=== PATIENT | male | born 1950 | race Two or more races ===

== ENCOUNTER 2024-08-13 20:30 | Inpatient (IN) | payer MEDICARE ==
--- NOTE | 2024-08-13 20:45 | ED ---
Neuro HPI - General Chief Complaint: Neuro Symptoms/Deficit Stated Complaint: Neuro symptoms Time Seen by Provider: 08/13/24 20:39 Source: patient, RN notes reviewed, old records reviewed Mode of arrival: wheelchair Limitations: no limitations - History of Present Illness Is the patient presenting with stroke symptoms?: Yes -: awoke with symptoms Initial Comments: This is a 73-year-old male to the ER for evaluation patient critical access hospital for evaluation of possible CVA. Patient awoke with symptoms today right-sided weakness right arm weakness difficulty with speech difficulty with thought process Location: speech, right face, dysarthria History of same: Yes Place: home Severity: moderate Improves With: none Worsens With: none Associated Symptoms: denies other symptoms Treatments Prior to Arrival: none - Related Data Home Medications: Home Medications Medication Instructions Recorded Confirmed Aspirin EC [Ecotrin Low Dose] 81 mg PO DAILY 08/14/24 08/14/24 Metoprolol Tartrate [Lopressor] 100 mg PO BID 08/14/24 08/14/24 lisinopriL [Zestril] 20 mg PO BID 08/14/24 08/14/24 Previous Rx's Medication Instructions Recorded Apixaban [Eliquis] 5 mg PO BID #60 tab 08/16/24 Atorvastatin [Lipitor] 80 mg PO HS #30 tab 08/16/24 amLODIPine [Norvasc] 10 mg PO DAILY #30 tab 08/16/24 Allergies/Adverse Reactions: Allergies Allergy/AdvReac Type Severity Reaction Status Date / Time No Known Allergies Allergy Verified 08/14/24 07:10 Review of Systems ROS Statement: Those systems with pertinent positive or pertinent negative responses have been documented in the HPI. ROS Other: All systems not noted in ROS Statement are negative. General Exam Limitations: no limitations General appearance: alert, in no apparent distress Head exam: Present: atraumatic, normocephalic, normal inspection Eye exam: Present: normal appearance, PERRL, EOMI. Absent: scleral icterus, conjunctival injection, periorbital swelling ENT exam: Present: normal exam, mucous membranes moist Neck exam: Present: normal inspection. Absent: tenderness, meningismus, lymph adenopathy Respiratory exam: Present: normal lung sounds bilaterally. Absent: respiratory distress, wheezes, rales, rhonchi, stridor Cardiovascular Exam: Present: regular rate, normal rhythm, normal heart sounds. Absent: systolic murmur, diastolic murmur, rubs, gallop, clicks GI/Abdominal exam: Present: soft, normal bowel sounds. Absent: distended, tenderness, guarding, rebound, rigid Extremities exam: Present: normal inspection, full ROM, normal capillary refill. Absent: tenderness, pedal edema, joint swelling, calf tenderness Back exam: Present: normal inspection Neurological exam: Present: alert, oriented X3, CN II-XII intact Psychiatric exam: Present: normal affect, normal mood Skin exam: Present: warm, dry, intact, normal color. Absent: rash Stroke MDM - Lab Data Result diagrams: 08/15/24 06:54 08/16/24 06:30 Lab Results 08/13/24 08/13/24 08/13/24 Range/Units 20:44 20:44 20:44 WBC 7.9 (3.8-10.6) k/uL RBC 4.70 (4.30-5.90) m/uL Hgb 14.4 (13.0-17.5) gm/dL Hct 44.0 (39.0-53.0) % MCV 93.7 (80.0-100.0) fL MCH 30.7 (25.0-35.0) pg MCHC 32.8 (31.0-37.0) g/dL RDW 13.6 (11.5-15.5) % Plt Count 160 (150-450) k/uL MPV 8.9 Neutrophils % 73 % Lymphocytes % 15 % Monocytes % 8 % Eosinophils % 2 % Basophils % 1 % Neutrophils # 5.8 (1.3-7.7) k/uL Lymphocytes # 1.2 (1.0-4.8) k/uL Monocytes # 0.6 (0-1.0) k/uL Eosinophils # 0.2 (0-0.7) k/uL Basophils # 0.0 (0-0.2) k/uL PT 12.0 (10.0-12.5) sec INR 1.1 (<1.2) APTT 27.2 (22.0-30.0) sec Sodium 140 (137-145) mmol/L Potassium 4.0 (3.5-5.1) mmol/L Chloride 110 H (98-107) mmol/L Carbon Dioxide 23 (22-30) mmol/L Anion Gap 7 mmol/L BUN 24 H (9-20) mg/dL Creatinine 1.10 (0.66-1.25) mg/dL Est GFR (CKD-EPI)AfAm 76 (>60 ml/min/1.73 sqM) Est GFR (CKD-EPI)NonAf 66 (>60 ml/min/1.73 sqM) Glucose 128 H (74-99) mg/dL POC Glucose (mg/dL) (70-110) mg/dL POC Glu [employer] ID Calcium 8.5 (8.4-10.2) mg/dL Total Bilirubin 0.8 (0.2-1.3) mg/dL AST 18 (17-59) U/L ALT 16 (4-49) U/L Alkaline Phosphatase 53 (38-126) U/L Creatine Kinase 55 (55-170) U/L Troponin I (0.000-0.034) ng/mL Total Protein 7.2 (6.3-8.2) g/dL Albumin 4.3 (3.5-5.0) g/dL 08/13/24 08/13/24 Range/Units 20:44 20:51 WBC (3.8-10.6) k/uL RBC (4.30-5.90) m/uL Hgb (13.0-17.5) gm/dL Hct (39.0-53.0) % MCV (80.0-100.0) fL MCH (25.0-35.0) pg MCHC (31.0-37.0) g/dL RDW (11.5-15.5) % Plt Count (150-450) k/uL MPV Neutrophils % % Lymphocytes % % Monocytes % % Eosinophils % % Basophils % % Neutrophils # (1.3-7.7) k/uL Lymphocytes # (1.0-4.8) k/uL Monocytes # (0-1.0) k/uL Eosinophils # (0-0.7) k/uL Basophils # (0-0.2) k/uL PT (10.0-12.5) sec INR (<1.2) APTT (22.0-30.0) sec Sodium (137-145) mmol/L Potassium (3.5-5.1) mmol/L Chloride (98-107) mmol/L Carbon Dioxide (22-30) mmol/L Anion Gap mmol/L BUN (9-20) mg/dL Creatinine (0.66-1.25) mg/dL Est GFR (CKD-EPI)AfAm (>60 ml/min/1.73 sqM) Est GFR (CKD-EPI)NonAf (>60 ml/min/1.73 sqM) Glucose (74-99) mg/dL POC Glucose (mg/dL) 168 H (70-110) mg/dL POC Glu [employer] ID Floyd White Calcium (8.4-10.2) mg/dL Total Bilirubin (0.2-1.3) mg/dL AST (17-59) U/L ALT (4-49) U/L Alkaline Phosphatase (38-126) U/L Creatine Kinase (55-170) U/L Troponin I <0.012 (0.000-0.034) ng/mL Total Protein (6.3-8.2) g/dL Albumin (3.5-5.0) g/dL - NIH Stroke Scale 1a. Level of Consciousness: (0) alert 1b. LOC Questions: (0) answers correctly 1c. LOC Commands: (0) performs tasks correctly 2. Best Gaze: (0) normal 3. Visual: (0) no visual loss 5a. Motor Arm Left: (0) no drift 5b. Motor Arm Right: (2) some gravity effort 6a. Motor Leg Left: (0) no drift 6b. Motor Leg Right: (0) no drift 7. Limb Ataxia: (0) absent 8. Sensory: (0) normal 9. Best Language: (1) mild/moderate aphasia 10. Dysarthria: (1) mild/moderate dysarthria 11. Extinction/Inattention: (0) no abnormality - Thrombolytic Inclusion/Exclusion Thrombolytic Exclusion Criteria: Symptom Onset > 4.5 Hours - Medical Decision Making 73 male with acute CVA symptoms elevated blood pressure patient will be admitted for hypertensive urgency and CVA - Radiology Data Radiology results: report reviewed (Chest x-ray CT brain CTA head neck negative for acute disease), image reviewed - EKG Data -: EKG Interpreted by Me (EKG A-fib rate 87 QRS 85 QTc 470) Past Medical History Past Alcohol Use History: Occasional Past Drug Use History: Marijuana Course Vital Signs 08/13/24 08/13/24 08/13/24 20:33 20:44 21:17 Temperature 97.4 F L Pulse Rate 86 98 86 Pulse Rate [ Pulse Oximetery ] Respiratory 16 18 20 Rate Blood Pressure 187/116 183/101 169/109 Blood Pressure [Right Arm] O2 Sat by Pulse 98 98 98 Oximetry 08/13/24 08/13/24 08/13/24 21:19 22:20 23:46 Temperature Pulse Rate 87 74 64 Pulse Rate [ Pulse Oximetery ] Respiratory 18 14 16 Rate Blood Pressure 169/109 164/95 182/122 Blood Pressure [Right Arm] O2 Sat by Pulse 98 99 Oximetry 08/14/24 08/14/24 08/14/24 01:17 03:06 07:49 Temperature 99.9 F H Pulse Rate 81 67 Pulse Rate [ 65 Pulse Oximetery ] Respiratory 18 18 18 Rate Blood Pressure 153/115 156/101 Blood Pressure 166/96 [Right Arm] O2 Sat by Pulse 98 98 96 Oximetry 08/14/24 08/14/24 08/14/24 07:50 11:41 11:46 Temperature 98.2 F 98.2 F Pulse Rate Pulse Rate [ 65 60 60 Pulse Oximetery ] Respiratory 18 18 60 H Rate Blood Pressure Blood Pressure 108/83 180/83 [Right Arm] O2 Sat by Pulse 98 98 Oximetry 08/14/24 08/14/24 08/14/24 12:50 15:44 19:35 Temperature 97.9 F Pulse Rate 76 Pulse Rate [ 60 85 Pulse Oximetery ] Respiratory 60 H 60 H 20 Rate Blood Pressure Blood Pressure 152/95 [Right Arm] O2 Sat by Pulse 98 96 Oximetry 08/14/24 19:37 Temperature Pulse Rate Pulse Rate [ Pulse Oximetery ] Respiratory Rate Blood Pressure 164/109 Blood Pressure [Right Arm] O2 Sat by Pulse Oximetry - Reevaluation(s) Reevaluation #1: 08/13/24 20:58 Medical records reviewed Reevaluation #2: 08/13/24 20:58 Patient symptoms unchanged Reevaluation #3: Patient informed of results questions answered Reevaluation #4: Was pt. sent in by a medical professional or institution (, PA, [facility], urgent care, hospital, or [facility]...) When possible be specific @ -no Did you speak to anyone other than the patient for history (EMS, parent, family, police, friend...)? What history was obtained from this source @ -no Did you review nursing and triage notes (agree or disagree)? Why? @ -agree Are old charts reviewed (outside hosp., previous admission, EMS record, old EKG, old radiological studies, urgent care reports/EKG's, [facility] records)? Report findings @ -yes Differential Diagnosis (chest pain, altered mental status, abdominal pain women, abdominal pain men, vaginal bleeding, weakness, fever, dyspnea, syncope, headache, dizziness, GI bleed, back pain, seizure, CVA, palpatations, mental health, musculoskeletal)? @ -prior EKG interpreted by me (3pts min.). @ -yes X-rays interpreted by me (1pt min.). @ -yes negative for acute disease CT interpreted by me (1pt min.). @ -Chest negative for acute disease U/S interpreted by me (1pt. min.). @ -no What testing was considered but not performed or refused? (CT, X-rays, U/S, labs)? Why? @ -none What meds were considered but not given or refused? Why? @ -none Did you discuss the management of the patient with other professionals (professionals i.e. , PA, [employer], lab, RT, psych nurse, social work professor, shoe lay out planner, teacher, accounting officer, case supervisor)? Give summary @ -no Was smoking cessation discussed for >3mins.? @ -no Was critical care preformed (if so, how long)? @ -no Were there social determinants of health that impacted care today? How? (Homelessness, low income, unemployed, alcoholism, drug addiction, tra nsportation, low edu. Level, literacy, decrease access to med. care, senior living, rehab)? @ -none Was there de-escalation of care discussed even if they declined (Discuss DNR or withdrawal of care, Hospice)? DNR status @ -no What co-morbidities impacted this encounter? (DM, HTN, Smoking, COPD, CAD, Cance r, CVA, ARF, Chemo, Hep., AIDS, mental health diagnosis, sleep apnea, morbid obesity)? @ -none Was patient admitted / discharged? Hospital course, mention meds given and route, prescriptions, significant lab abnormalities, going to OR and other pertinent info. @ - 73 male with acute CVA symptoms elevated blood pressure patient will be admitted for hypertensive urgency and CVA Admitted Undiagnosed new problem with uncertain prognosis? @ -no Drug Therapy requiring intensive monitoring for toxicity (Heparin, Nitro, Insulin, Cardizem)? @ -no Were any procedures done? @ -no Diagnosis/symptom? @ -CVA and hypertensive emergency Acute, or Chronic, or Acute on Chronic? @ -Acute Uncomplicated (without systemic symptoms) or Complicated (systemic symptoms)? @ -Complicated Side effects of treatment? @ -no Exacerbation, Progression, or Severe Exacerbation? @ -exacerbation Poses a threat to life or bodily function? How? (Chest pain, [place], [place], pneumonia, PE, COPD, DKA, ARF, appy, cholecystitis, CVA, Diverticulitis, Homicidal, Suicidal, threat to staff... and all critical care pts) @ -yes acute CVA Reevaluation #5: Differential CVA Ischemic stroke, hemorrhagic stroke, brain tumor, atypical migraine, Wernicke's encephalopathy, seizure, multiple sclerosis, meningitis, encephalitis, hypoglycemia, Guillain-Henderson, electrolytes disturbance, myasthenia gravis.... This is not meant to be an all-inclusive list - Consultations Consultation #1: Spoke with admitting physicians who agreed to admit this patient Disposition Clinical Impression: CVA (cerebral vascular accident) Disposition: ADMITTED IP TO THIS HOSP Condition: Fair Is patient prescribed a controlled substance at d/c from ED?: No Time of Disposition: 21:00
[2024-08-13 20:52] LABS: Glucose,Whole Blood 168 mg/dL (70-110)
--- NOTE | 2024-08-13 21:12 | CT ---
EXAMINATION TYPE: CODE STROKE: CT brain wo contr DATE OF EXAM: 08/13/2024 9:05 PM COMPARISON: None available.. CLINICAL INDICATION: Male, 73 years old with history of Neuro deficit, acute, stroke suspected, Right arm weakness since this morning. TECHNIQUE: Brain: Axial CT images of the brain were obtained with coronal and sagittal reformats created and rev iewed. Contrast used: None. Oral contrast used: None. CT DLP: 1233.2 mGycm, Automated exposure control for dose reduction was used. FINDINGS: Brain: No acute intracranial hemorrhage, midline shift or significant acute mass effect. No sagittal extra a xial fluid collection. Basal cisterns are patent. Ventricles and sulci mildly prominent with generali zed cerebral volume loss. There is asymmetric hypoattenuation in the left parietal lobe adjacent to t he posterior horn of the left lateral ventricle. Additional regions of scattered periventricular and some cortical white matter hypoattenuation likely reflect chronic microvascular ischemia. No large sc alp hematoma or depressed skull fracture. Paranasal sinuses and mastoid air cells appear patent. Prev ious bilateral cataract lens extraction. IMPRESSION: No acute intracranial hemorrhage, midline shift or significant acute mass effect. [facility], , 08/13/2024 9:10 PM
[2024-08-13] MEDS: ASPIRIN 325 MG TAB PO STA (21:37)
[2024-08-13] MEDS: SODIUM CHLORIDE 0.9% 1,000 ML IV SCH (21:38)
[2024-08-13] MEDS: SODIUM CHLORIDE 0.9% 1,000 ML IV STA (21:38)
--- NOTE | 2024-08-13 21:38 | CT ---
EXAMINATION TYPE: CT angio head neck DATE OF EXAM: 08/13/2024 9:19 PM COMPARISON: None available. CLINICAL INDICATION: Male, 73 years old with history of Neuro deficit, acute, stroke suspected; PHH, Right side weakness since this morning. TECHNIQUE: Axially acquired helical CT angiogram of the head and neck was obtained with contrast. Axi al images are supplemented with 3D reconstructions and MIP images which were post-processed at an in dependent workstation. NASCET criteria used. Contrast used:65 mL of Isovue 370 without and with IV Contrast, Oral contrast used: None. CT DLP: 674 mGycm, Automated exposure control for dose reduction was used. FINDINGS: CTA HEAD: No evidence of acute intracranial hemorrhage, mass effect, or midline shift. The ventricles, sulci, a nd cisterns are unremarkable. Vertebral arteries: The vertebral arteries are patent. Vertebral artery dominance: Codominant Basilar artery: The basilar artery is intact. The basilar artery bifurcation is normal. Internal Carotid arteries: The cervical, petrous, cavernous and supraclinoid segments are normal. NAYLA: Patent with no evidence of aneurysm. ACOM: Present without evidence of aneurysm. MCA: Patent with no evidence of aneurysm. CIGAR BINDER: Patent with no evidence of aneurysm. PCOM: Dominant left posterior communicating artery/ origin with absent left P1 segment. No right -sided posterior communicating artery. Dural sinuses: Patent. CTA NECK: Right Carotid System: The common carotid and external carotid arteries are patent. There is less than 50 % stenosis at the carotid bifurcation secondary to calcified/noncalcified plaque. No evidence of flow limiting stenosis . The rest of the internal carotid artery is patent. Left Carotid System: The common carotid and external carotid arteries are patent. There is less than 50 % stenosis at the carotid bifurcation secondary to calcified/noncalcified plaque. No evidence of flow-limiting stenosis . The rest of the internal carotid artery is patent. Moderate stenosis of the left vertebral artery origin due to calcified plaque which then reconstitute s prior to the V2 segment. Vertebral arteries are otherwise patent without evidence hemodynamically s ignificant stenosis. There is a three-vessel aortic arch. No evidence of hemodynamically significant stenosis. Upper thorax: IMPRESSION: 1. No evidence of dissection of the cervical internal carotid arteries or vertebral arteries. 2. No any evidence of significant stenosis at the carotid bifurcations. 3. No evidence of intracranial high-grade stenosis or intracranial aneurysm. If there is continued clinical concern for acute infarction, consider MRI brain, which is a more sensitive test. [facility], , 08/13/2024 9:36 PM
--- NOTE | 2024-08-13 22:03 | XR ---
EXAMINATION TYPE: XR chest 2V DATE OF EXAM: 08/13/2024 10:00 PM COMPARISON: None available. CLINICAL INDICATION: Male, 73 years old with history of altered mental status; [facility] TECHNIQUE: XR chest 2V Frontal and lateral views of the chest. FINDINGS: Cardiac silhouette within normal limits for size. Questionable patchy opacities at the right lung base which could reflect atelectasis or developing pn eumonia. No pleural effusion. No pneumothorax. No acute osseous abnormality. IMPRESSION: Questionable patchy opacities developing at the right lung base which could reflect atelectasis and/o r pneumonia. [facility], , 08/13/2024 10:01 PM
[2024-08-13 22:55] LABS: Basophils % (A) 1 %; Eosinophils # (A) 0.2 k/uL (0-0.7); Eosinophils % (A) 2 %; HGB 14.4 gm/dL (13.0-17.5); Lymphocytes # (A) 1.2 k/uL (1.0-4.8); Lymphocytes % (A) 15 %; MCH 30.7 pg (25.0-35.0); MCHC 32.8 g/dL (31.0-37.0); MCV 93.7 fL (80.0-100.0); Mean Platelet Volume 8.9; Monocytes # (A) 0.6 k/uL (0-1.0); Monocytes % (A) 8 %; Neutrophils # (A) 5.8 k/uL (1.3-7.7); Neutrophils % (A) 73 %; Platelet Count 160 k/uL (150-450); RDW 13.6 % (11.5-15.5); WBC 7.9 k/uL (3.8-10.6)
[2024-08-13 23:07] LABS: INR 1.1 (<1.2); Partial Thromboplastin Time 27.2 sec (22.0-30.0)
[2024-08-13 23:21] LABS: ALT 16 U/L (4-49); AST 18 U/L (17-59); African American GFR (CKD) 76 (>60 ml/min/1.73 sqM); Albumin 4.3 g/dL (3.5-5.0); Alkaline Phosphatase 53 U/L (38-126); Anion Gap 7 mmol/L; Blood Urea Nitrogen 24 mg/dL (9-20); Calcium 8.5 mg/dL (8.4-10.2); Carbon Dioxide 23 mmol/L (22-30); Chloride 110 mmol/L (98-107); Creatine Kinase 55 U/L (55-170); Glucose 128 mg/dL (74-99); Non-African American GFR(CKD) 66 (>60 ml/min/1.73 sqM); Sodium 140 mmol/L (137-145); Total Bilirubin 0.8 mg/dL (0.2-1.3); Total Protein 7.2 g/dL (6.3-8.2)
[2024-08-14] MEDS: ASPIRIN 325 MG TAB PO SCH (07:59)
[2024-08-14 08:44] LABS: Chol/HDL Ratio 4.27 Ratio; LDL Cholesterol,Calculated 110.8 mg/dL (0.0-131.0)
[2024-08-14] MEDS: lisinopriL 20 MG TAB PO SCH (13:08)
[2024-08-14] MEDS: METOPROLOL TARTRATE 50 MG TAB PO SCH (13:08)
--- NOTE | 2024-08-14 14:27 | P.HPIM ---
History of Present Illness H&P Date: 08/14/24 This is a very pleasant 73-year-old male who presented to the emergency department with right side weakness of his upper extremity along with garbled speech. Patient does follow with Dr. Hattie Tran with a past medical history of hypertension, hyperlipidemia. Patient reports he uses THC and occasionally drinks a few times a week. Patient did have a few beers last night and went to sleep around midnight and woke up approximately around 6 AM with the right sided weakness although did not recognize his speech disturbances and had no other deficits such as dizziness lightheadedness and went to the store and was having difficulty speaking and was noticed by the worker and came to the hospital for further evaluation. CT head was negative and CT angiogram showing no evidence of dissection of the cervical internal carotid arteries or vertebral arteries, no evidence of significant stenosis or carotid bifurcations and no evidence of intracranial high-grade stenosis or aneurysm. Patient was mildly hypertensive on admission and reports he has been compliant with his medications. Patient also reports he has been told previously of an arrhythmia although never been told of atrial fibrillation and reports does take an 81 mg aspirin daily. Patient was admitted for neurology evaluation. REVIEW OF SYSTEMS: CONSTITUTIONAL: No fever, no malaise, no fatigue. HEENT: No recent visual problems or hearing problems. Denied any sore throat. CARDIOVASCULAR: No chest pain, orthopnea, PND, no palpitations, no syncope. PULMONARY: No shortness of breath, no cough, no hemoptysis. GASTROINTESTINAL: No diarrhea, no nausea, no vomiting, no abdominal pain. NEUROLOGICAL: No headaches, no weakness, patient reported right side weakness with trouble expressing words and garbled speech that has since resolved HEMATOLOGICAL: Denies any bleeding or petechiae. GENITOURINARY: Denies any burning micturition, frequency, or urgency. MUSCULOSKELETAL/RHEUMATOLOGICAL: Denies any joint pain, swelling, or any muscle pain. ENDOCRINE: Denies any polyuria or polydipsia. The rest of the 14-point review of systems is negative. PHYSICAL EXAMINATION: GENERAL: The patient is alert and oriented x3, not in any acute distress. Well developed, elderly appearing, obese HEENT: Pupils are round and equally reacting to light. EOMI. No scleral icterus. No conjunctival pallor. Normocephalic, atraumatic. No pharyngeal erythema. No thyromegaly. CARDIOVASCULAR: S1 and S2 muffled PULMONARY: Chest is clear to auscultation, no wheezing or crackles. ABDOMEN: Soft, obese. Nontender, nondistended, normoactive bowel sounds. No palpable organomegaly. MUSCULOSKELETAL: No joint swelling or deformity. EXTREMITIES: No cyanosis, clubbing, or pedal edema. No deficits noted and gait is steady NEUROLOGICAL: Gross neurological examination did not reveal any focal deficits. SKIN: No rashes. Assessment: Right sided weakness with changes in speech, concern for TIA versus CVA History of hypertension Patient reports of known arrhythmia, although not sure if it was atrial fibrillation, 2D echo ordered and pending History of hyperlipidemia although does not take any medications he is fearful of taking statins due to significant side effects Alcohol use a few times weekly THC use a few times weekly Obesity with a BMI 36.2 GI prophylaxis DVT prophylaxis Full code Plan: Patient was admitted with right-sided weakness and garbled speech with concerns of TIA versus CVA with neurology consulted. CT was negative and CT angio showing no significant stenosis, MRI of the brain is ordered and pending 2D echo ordered and pending and recommend to continue with telemetry monitoring Home medications reviewed and resumed as appropriate Will follow-up on repeat labs and await hemoglobin A1c as blood sugars were mildly elevated although patient reports no history of diabetes. Currently awaiting MRI of the brain. Patient reports complete resolution of the symptoms and denies any further right sided weakness or difficulties in speaking. The impression and plan of care has been dictated by Madeleine Herrera, Nurse Practitioner as directed. Dr. Patsy MD I have performed a history and examination and MDM of this patient, discussed the same with the dictator, and agree with the dictator's assessment and plan as written ,documented as a scribe. Based on total visit time, I have performed more than 50% of the visit. Past Medical History Past Alcohol Use History: Occasional Past Drug Use History: Marijuana Medications and Allergies Home Medications Medication Instructions Recorded Confirmed Type Aspirin EC [Ecotrin Low Dose] 81 mg PO DAILY 08/14/24 08/14/24 History Metoprolol Tartrate [Lopressor] 100 mg PO BID 08/14/24 08/14/24 History Unknown Bp Med 1 tab PO HS 08/14/24 08/14/24 History lisinopriL [Zestril] 20 mg PO BID 08/14/24 08/14/24 History Allergies Allergy/AdvReac Type Severity Reaction Status Date / Time No Known Allergies Allergy Verified 08/14/24 07:10 Physical Exam Vitals: Vital Signs Temp Pulse Pulse Resp BP BP Pulse Ox 08/14/24 07:50 65 18 08/14/24 07:49 99.9 F H 65 18 166/96 96 08/14/24 03:06 67 18 156/101 98 08/14/24 01:17 81 18 153/115 98 08/13/24 23:46 64 16 182/122 08/13/24 22:20 74 14 164/95 99 08/13/24 21:19 87 18 169/109 98 08/13/24 21:17 86 20 169/109 98 08/13/24 20:44 98 18 183/101 98 08/13/24 20:33 97.4 F L 86 16 187/116 98 Intake and Output 08/13/24 08/14/24 08/14/24 22:59 06:59 14:59 Other: Voiding Method Toilet Weight 111.13 kg Results CBC & Chem 7: 08/13/24 20:44 08/13/24 20:44 Labs: Abnormal Lab Results - Last 24 Hours (Table) 08/13/24 08/13/24 Range/Units 20:44 20:51 Chloride 110 H (98-107) mmol/L BUN 24 H (9-20) mg/dL Glucose 128 H (74-99) mg/dL POC Glucose (mg/dL) 168 H (70-110) mg/dL Thrombosis Risk Factor Assmnt - DVT/VTE Prophylaxis DVT/VTE Prophylaxis: Pharmacologic Prophylaxis ordered Assessment and Plan Time with Patient: Greater than 30
[2024-08-14] MEDS: HEPARIN SODIUM,PORCINE 5,000 UNIT/ML 1 ML VIAL SQ SCH (15:46)
[2024-08-14] MEDS: CLOPIDOGREL 75 MG TAB PO SCH (15:46)
--- NOTE | 2024-08-14 18:40 | P.CNNES ---
History of Present Illness Consult date: 08/14/24 Requesting physician: Claudio Anand Reason for Consult: cva History of Present Illness: This is a 73-year-old gentleman who present emergency department because of right arm weakness, speech difficulty and slurring of the speech. Stated that his symptoms began upon waking up yesterday at 6 to 7 AM and last normal was at midnight night before. He stated he initially noticed his right arm was weak but did not think much of it and it was mild then later in the day when he was trying to speak to somebody felt he could not get his words out and it was not coming out right as well as slurring his speech. His weakness got all a bit more worse on the right arm. He denies any history of stroke. He does have u nderlying history of high blood pressure and his blood pressure runs in the 130s 140s systolic at baseline and sometimes goes higher. He is on aspirin 81 mg daily. According to the patient he states that he has underlying history of that his heart skips a beat and he follows up with the primary care once a year and does not know if he has underlying history of atrial fibrillation or flutter. Some of the workup during this hospital visit consisted of: CBC with differential is unremarkable Lipid panel is triglyceride is 139, cholesterol is 181, HDL is 42 and LDL is 110. CT of the head is reported as no acute intracranial hemorrhage, midline shift or significant acute mass effect. Reviewed the CT and I agree with the report CT angiography of the head and neck is reported as no evidence of dissection of cervical internal carotid artery or vertebral artery. No evidence of significant stenosis at the carotid bifurcation. No evidence of intracranial high-grade stenosis or intracranial aneurysm. EKG is reported as atrial fibrillation with aberrant conduction or ventricular premature complexes. Review of Systems As per HPI. Past Medical History Past Medical History: Hypertension History of Any Multi-Drug Resistant Organisms: None Reported Past Anesthesia/Blood Transfusion Reactions: No Reported Reaction Past Alcohol Use History: Occasional Past Drug Use History: Marijuana Medications and Allergies Home Medications Medication Instructions Recorded Confirmed Type Aspirin EC [Ecotrin Low Dose] 81 mg PO DAILY 08/14/24 08/14/24 History Metoprolol Tartrate [Lopressor] 100 mg PO BID 08/14/24 08/14/24 History Unknown Bp Med 1 tab PO HS 08/14/24 08/14/24 History lisinopriL [Zestril] 20 mg PO BID 08/14/24 08/14/24 History Allergies Allergy/AdvReac Type Severity Reaction Status Date / Time No Known Allergies Allergy Verified 08/14/24 07:10 Physical Examination - Vital Signs Vital Signs: Vital Signs Temp Pulse Pulse Resp BP BP Pulse Ox 08/14/24 15:44 97.9 F 85 60 H 152/95 98 08/14/24 12:50 60 60 H 08/14/24 11:46 98.2 F 60 60 H 180/83 98 08/14/24 11:41 98.2 F 60 18 108/83 98 08/14/24 07:50 65 18 08/14/24 07:49 99.9 F H 65 18 166/96 96 08/14/24 03:06 67 18 156/101 98 08/14/24 01:17 81 18 153/115 98 08/13/24 23:46 64 16 182/122 08/13/24 22:20 74 14 164/95 99 08/13/24 21:19 87 18 169/109 98 08/13/24 21:17 86 20 169/109 98 08/13/24 20:44 98 18 183/101 98 08/13/24 20:33 97.4 F L 86 16 187/116 98 Intake and Output 08/14/24 08/14/24 08/14/24 06:59 14:59 22:59 Intake Total 118 500 Balance 118 500 Intake: Oral 118 500 Other: Voiding Method Toilet # Voids 1 2 Weight 111.13 kg GENERAL: The patient is lying in bed and is not in acute distress. NEUROLOGICAL: Higher mental function: The patient is awake, alert, oriented to self, place and time. Patient is following commands. Has mild expressive aphasia. Cranial nerves: The pupils are round, equal and reactive to light and accommodation. Visual beckwith are full to confrontation throughout. Extraocular movement is intact no nystagmus is noted. Facial sensation is normal to touch throughout. The facial strength is normal throughout. Hearing is moderately decreased bilaterally to hand rub. Tongue is midline and moved [id number] without any difficulty. Mild dysarthria is noted. Shoulder shrug is normal bilaterally. Motor: The strength is 5 over 5 throughout. Normal tone and bulk. Cerebellum: Normal finger to nose heel to chin bilaterally. Sensation: Sensation is normal to touch throughout. Reflexes (right/left): 2+ throughout. Plantars are downgoing bilaterally. Results - Laboratory Findings CBC and BMP: 08/13/24 20:44 08/13/24 20:44 Abnormal Lab Findings: Abnormal Labs 08/13/24 08/13/24 20:44 20:51 Chloride 110 H BUN 24 H Glucose 128 H POC Glucose (mg/dL) 168 H Assessment and Plan Assessment: This is a 73-year-old gentleman who present emergency department because of expressive aphasia dysarthria and right arm weakness and he woke up with the symptoms yesterday a.m. and the last normal was at midnight. Likely Acute ischemic stroke. No IV thrombolytic since outside window and risk outweigh benefit. Hypertensive urgency Atrial fibrillation on EKG and patient states that in the past he has skipped beat unsure if he has underlying history of atrial fibrillation that the patient is not aware of Underlying history of hypertension and seems uncontrolled Plan: Patient is resumed on his home dose of aspirin 81 mg. I started the patient on Plavix 75 mg daily. Recommend cardiology consultation for the A-fib Patient is on Lipitor 80 mg nightly for sites of stroke prophylaxis. I ordered MRI of the brain. 2D echo and hemoglobin A1c is ordered and is pending Continue neurochecks Cardiac monitoring PT OT and UTILITY TRACTOR OPERATOR are consulted Patient was counseled on taking his blood pressure at home as well as making sure blood pressure is controlled Will defer the rest of the medical management to primary and other specialist DVT prophylaxis I started the patient on subcu heparin 5000 units every 12 hours. The plan discussed with the patient and his nurse Thank for the consultation. Time with Patient: Greater than 30
[2024-08-14] MEDS: ATORVASTATIN 80 MG TAB PO SCH (19:39)
[2024-08-15 07:30] LABS: Basophils % (A) 0 %; Eosinophils # (A) 0.1 k/uL (0-0.7); Eosinophils % (A) 2 %; HCT 46.3 % (39.0-53.0); HGB 15.1 gm/dL (13.0-17.5); Lymphocytes # (A) 1.3 k/uL (1.0-4.8); Lymphocytes % (A) 20 %; MCHC 32.7 g/dL (31.0-37.0); MCV 94.8 fL (80.0-100.0); Mean Platelet Volume 8.5; Monocytes # (A) 0.5 k/uL (0-1.0); Monocytes % (A) 7 %; Neutrophils # (A) 4.5 k/uL (1.3-7.7); Neutrophils % (A) 67 %; Platelet Count 166 k/uL (150-450); RBC 4.88 m/uL (4.30-5.90); RDW 13.6 % (11.5-15.5); WBC 6.7 k/uL (3.8-10.6)
[2024-08-15] MEDS: ASPIRIN 81 MG PO SCH (07:44)
[2024-08-15 08:11] LABS: African American GFR (CKD) 73 (>60 ml/min/1.73 sqM); Anion Gap 5 mmol/L; Blood Urea Nitrogen 15 mg/dL (9-20); Calcium 8.7 mg/dL (8.4-10.2); Carbon Dioxide 27 mmol/L (22-30); Chloride 106 mmol/L (98-107); Glucose 88 mg/dL (74-99); Non-African American GFR(CKD) 63 (>60 ml/min/1.73 sqM); Potassium 3.9 mmol/L (3.5-5.1); Sodium 138 mmol/L (137-145)
[2024-08-15] MEDS: amLODIPine 10 MG TAB PO SCH (15:16)
--- NOTE | 2024-08-15 17:20 | P.PN ---
Subjective Progress Note Date: 08/15/24 I am following up with the patient and patient states that his speech is improving but not back to baseline. He denies of any new neurological issues. He is pending to have MRI of the brain. Objective - Vital Signs Vital signs: Vital Signs Temp 98.3 F 08/15/24 15:15 Pulse 68 08/15/24 15:15 Resp 17 08/15/24 15:15 BP 168/94 08/15/24 15:15 Pulse Ox 98 08/15/24 15:15 FiO2 Intake & Output 08/14/24 08/15/24 08/15/24 18:59 06:59 18:59 Intake Total 618 Balance 618 Weight 111.13 kg 111.3 kg Intake: Oral 618 Other: Voiding Method Toilet Toilet Toilet # Voids 2 3 # Bowel Movements 1 - Exam GENERAL: The patient is sitting in a recliner chair and is not in acute distress. NEUROLOGICAL: Higher mental function: The patient is awake, alert, oriented to self, place and time. Patient is following commands. Has subtle expressive aphasia. Cranial nerves: The pupils are round, equal and reactive to light and accommodation. Visual beckwith are full to confrontation throughout. Extraocular movement is intact no nystagmus is noted. Facial sensation is normal to touch throughout. The facial strength is normal throughout. Hearing is moderately decreased bilaterally to hand rub. Tongue is midline and moved [id number] wi thout any difficulty. Mild dysarthria is noted. Shoulder shrug is normal bilaterally. Motor: The strength is 5 over 5 throughout. Normal tone and bulk. Cerebellum: Normal finger to nose heel to chin bilaterally. Sensation: Sensation is normal to touch throughout. Reflexes (right/left): 2+ throughout. Plantars are downgoing bilaterally. Some of the workup during this hospital visit consisted of: CBC with differential is unremarkable Lipid panel is triglyceride is 139, cholesterol is 181, HDL is 42 and LDL is 110. TSH: 1.730 HbA1c: 6.0 CT of the head is reported as no acute intracranial hemorrhage, midline shift or significant acute mass effect. Reviewed the CT and I agree with the report CT angiography of the head and neck is reported as no evidence of dissection of cervical internal carotid artery or vertebral artery. No evidence of significant stenosis at the carotid bifurcation. No evidence of intracranial high-grade stenosis or intracranial aneurysm. EKG is reported as atrial fibrillation with aberrant conduction or ventricular premature complexes. - Labs CBC & Chem 7: 08/15/24 06:54 08/15/24 06:54 Assessment and Plan Assessment: This is a 73-year-old gentleman who present emergency department because of expressive aphasia dysarthria and right arm weakness and he woke up with the [employer] yesterday a.m. and the last normal was at midnight. Likely Acute ischemic stroke. No IV thrombolytic since outside window and risk outweigh benefit. Hypertensive urgency Atrial fibrillation on EKG and patient states that in the past he has skipped beat unsure if he has underlying history of atrial fibrillation that the patient is not aware of Underlying history of hypertension and seems uncontrolled Plan: Patient is resumed on his home dose of aspirin 81 mg. I started the patient on Plavix 75 mg daily. For A-fib recommend cardiology consultation. If the patient is started on anticoagulation down the line, patient does not need to be on dual antiplatel et. Patient is on Lipitor 80 mg nightly for sites of stroke prophylaxis. Pending MRI of the brain, 2D echo. Continue neurochecks Cardiac monitoring PT OT and CLINICAL NURSE REVIEWER are consulted Patient was counseled on taking his blood pressure at home as well as making sure blood pressure is controlled Will defer the rest of the medical management to primary and other specialist DVT prophylaxis On subcu heparin 5000 units every 12 hours. Time with Patient: Less than 30
--- NOTE | 2024-08-15 17:54 | MR ---
INDICATION: Patient age:Male; 73 years old; Reason for study: cva. right arm weakness and speech difficulty; PHH. COMPARISON: CT brain 08/13/2024, CTA head and neck 08/13/2024. TECHNIQUE: Multi planar, multi sequence imaging was performed through the brain without the administr ation of intravenous contrast. FINDINGS: The herbert-white junctions, ventricular system, basal cisterns appear unremarkable. Mild diffuse cerebr al atrophy. Several foci of restricted diffusion identified within the left frontal parietal temporal watershed region (series 303, image 200). Additional separation within the left temporal lobe within the middle cranial fossa anteriorly (series 3, image 104). There is corresponding T2/FLAIR hyperinte nse signal. Intracranial arterial flow voids are maintained. Midline structures show no abnormality. Patchy and confluent areas of high T2/FLAIR signal intensity are seen within the periventricular whit e matter. The susceptibility weighted images do not reveal any evidence for micro-hemorrhage. The bone marrow signal is within normal limits. Bilateral aphakia. Mucous retention cyst within the b ilateral maxillary sinuses with largest within the left measuring up to 1.3 cm. Trace effusion within the right mastoid air cells. IMPRESSION: 1. Acute/subacute ischemia primarily within the left frontal/parietal/temporal watershed region with additional focus within the anterior left temporal lobe within the middle cranial fossa. 2. Nonspecific white matter changes, likely related to small vessel ischemic disease. [facility], , 08/15/2024 5:52 PM
[2024-08-15] MEDS: APIXABAN 5 MG TAB PO SCH (20:21)
[2024-08-16] MEDS: PANTOPRAZOLE 40 MG TABLET PO SCH (05:48)
--- NOTE | 2024-08-16 06:14 | P.PN ---
Subjective Progress Note Date: 08/15/24 This is a very pleasant 73-year-old male who presented to the emergency department with right side weakness of his upper extremity along with garbled speech. Patient does follow with Dr. Hattie Tran with a past medical history of hypertension, hyperlipidemia. Patient reports he uses THC and occasionally drinks a few times a week. Patient did have a few beers last night and went to sleep around midnight and woke up approximately around 6 AM with the right sided weakness although did not recognize his speech disturbances and had no other deficits such as dizziness lightheadedness and went to the store and was having difficulty speaking and was noticed by the worker and came to the hospital for further evaluation. CT head was negative and CT angiogram showing no evidence of dissection of the cervical internal carotid arteries or vertebral arteries, no evidence of significant stenosis or carotid bifurcations and no evidence of intracranial high-grade stenosis or aneurysm. Patient was mildly hypertensive on admission and reports he has been compliant with his medications. Patient also reports he has been told previously of an arrhythmia although never been told of atrial fibrillation and reports does take an 81 mg aspirin daily. Patient was admitted for neurology evaluation. 08/15/2024 Patient is seen in follow-up today awaiting MRI of the brain which should occur sometime today although they are quite behind and report they are still working on MRIs from August 10. Patient denies any further symptoms of right sided weakness or difficulty in speaking. Blood pressures are mildly elevated and home medications resumed will add Norvasc as patient takes this as well. Diallo t is afebrile with no reported chest pain or shortness of breath. Review of systems: Constitutional: No reports of fatigue, fever, or chills Cardiovascular: No reports of chest pain or palpitations Respiratory: No reports of shortness of breath or cough GI: No reports of nausea, vomiting, or diarrhea : No reports of dysuria or retention Neurovascular: No reports of weakness or numbness All medications have been reviewed The rest of the 14-point review of systems is negative. PHYSICAL EXAMINATION: GENERAL: The patient is alert and oriented x3, not in any acute distress. Well developed, elderly appearing, obese HEENT: Pupils are round and equally reacting to light. EOMI. No scleral icterus. No conjunctival pallor. Normocephalic, atraumatic. No pharyngeal erythema. No thyromegaly. CARDIOVASCULAR: S1 and S2 muffled PULMONARY: Chest is clear to auscultation, no wheezing or crackles. ABDOMEN: Soft, obese. Nontender, nondistended, normoactive bowel sounds. No palpable organomegaly. MUSCULOSKELETAL: No joint swelling or deformity. EXTREMITIES: No cyanosis, clubbing, or pedal edema. No deficits noted and gait is steady, strength in bilateral upper and lower extremities 5/5 NEUROLOGICAL: Gross neurological examination did not reveal any focal deficits. SKIN: No rashes. Assessment: Right sided weakness with changes in speech, concern for TIA versus CVA, likely CVA History of hypertension Patient reports of known arrhythmia, although not sure if it was atrial fibrillation, 2D echo ordered and pending. EKG reports atrial fibrillation/flutter, cardiology consulted History of hyperlipidemia although does not take any medications he is fearful of taking statins due to significant side effects Alcohol use a few times weekly THC use a few times weekly Obesity with a BMI 36.2 GI prophylaxis DVT prophylaxis Full code Plan: Patient was admitted with right-sided weakness and garbled speech with concerns of TIA versus CVA with neurology following. CT was negative and CT angio showing no significant stenosis, MRI of the brain is ordered and pending for sometime today. MRI department is extremely behind and working on MRIs that were ordered from August 10. 2D echo ordered and pending and recommend to continue with telemetry monitoring. Will consult cardiology and appreciate input and recommendations. Patient reports was never officially diagnosed with an arrhythmia and has not been on any blood thinners and reports to taking a baby aspirin daily. Most likely A- fib/flutter and will start Eliquis Home medications reviewed and resumed as appropriate Will follow-up on repeat labs and await hemoglobin A1c as blood sugars were mildly elevated although patient reports no history of diabetes. Currently awaiting MRI of the brain. Patient reports complete resolution of the symptoms and denies any further right sided weakness or difficulties in speaking. Will discuss with neurology once MRI is resulted regarding discharge planning. The impression and plan of care has been dictated by Madeleine Herrera, Nurse Practitioner as directed. Dr. Patsy MD I have performed a history and examination and MDM of this patient, discussed the same with the dictator, and agree with the dictator's assessment and plan as written ,documented as a scribe. Based on total visit time, I have performed more than 50% of the visit. Objective - Vital Signs Vital signs: Vital Signs Temp 98.2 F 08/15/24 11:02 Pulse 66 08/15/24 13:13 Resp 17 08/15/24 13:13 BP 163/86 08/15/24 11:02 Pulse Ox 98 08/15/24 11:02 FiO2 Intake & Output 08/14/24 08/15/24 08/15/24 18:59 06:59 18:59 Intake Total 618 Balance 618 Weight 111.13 kg 111.3 kg Intake: Oral 618 Other: Voiding Method Toilet Toilet Toilet # Voids 2 1 - Labs CBC & Chem 7: 08/15/24 06:54 08/15/24 06:54
--- NOTE | 2024-08-16 07:58 | CA ---
Transthoracic Echo Report Name: Aniceto Gaming Age: 73 Gender: M : 1950 Exam Date: 08/15/2024 09:48 Exam Location: [facility] Ht (in): 69 Wt (lb): 245 Ordering Physician: Claudio Anand DO Attending/Referring Phys: [id number], Cheng Retail Operations Manager Mariluz Schuler RDCS Procedure CPT: Indications: Thrombus Cardiac Hx: Technical Quality: Fair Contrast 1: Total Dose (mL): Contrast 2: Total Dose (mL): MEASUREMENTS (Male / Female) Normal Values 2D ECHO LV Diastolic Diameter PLAX 4.3 cm 4.2 - 5.9 / 3.9 - 5.3 cm LV Systolic Diameter PLAX 2.6 cm IVS Diastolic Thickness 1.4 cm 0.6 - 1.0 / 0.6 - 0.9 cm LVPW Diastolic Thickness 1.5 cm 0.6 - 1.0 / 0.6 - 0.9 cm LV Relative Wall Thickness 0.7 RV Internal Dim ED PLAX 2.0 cm LVOT Diameter 2.1 cm LA Systolic Diameter LX 5.4 cm 3.0 - 4.0 / 2.7 - 3.8 cm LV Diastolic Volume MOD BP 50.9 cm??? 67 - 155 / 56 - 104 cm??? LV Systolic Volume MOD BP 32.3 cm??? - / 19 - 49 cm??? LV Ejection Fraction MOD BP 36.7 % >= 55 % LV Cardiac Index MOD BP 528.3 cm???/min???m??? LV Diastolic Volume MOD 4C 62.3 cm??? LV Systolic Volume MOD 4C 39.2 cm??? LV Ejection Fraction MOD 4C 37.0 % LV Cardiac Index MOD 4C 651.8 cm???/min???m??? LV Diastolic Length 4C 7.2 cm LV Systolic Length 4C 6.5 cm LV Diastolic Volume MOD 2C 38.8 cm??? LV Systolic Volume MOD 2C 23.5 cm??? LV Ejection Fraction MOD 2C 39.6 % LV Cardiac Index MOD 2C 434.0 cm???/min???m??? LV Diastolic Length 2C 6.7 cm LV Systolic Length 2C 6.2 cm LA Volume 164.0 cm??? 18 - 58 / 22 - 52 cm??? LA Volume Index 69.2 cm???/m??? 16 - 28 cm???/m??? M-MODE Aortic Root Diameter MM 3.6 cm LA Systolic Diameter MM 5.4 cm LA Ao Ratio MM 1.5 AV Cusp Separation MM 1.8 cm DOPPLER AI Peak Velocity 192.3 cm/s AI Peak Gradient 14.8 mmHg AI Pressure Half Time 704.6 ms TR Peak Velocity 301.3 cm/s TR Peak Gradient 36.3 mmHg Right Atrial Pressure 15.0 mmHg Pulmonary Artery Systolic Pressu 51.3 mmHg Right Ventricular Systolic Press 51.3 mmHg FINDINGS Left Ventricle Left ventricular ejection fraction is estimated at 55-60 %. Moderately increased septal wall thickness. No obvious regional wall motion abnormalities. Left ventricular cavity size normal. Right Ventricle Normal right ventricular size and function. Moderate pulmonary hypertension. Right Atrium Severe right atrial dilatation. Left Atrium Severely increased left atrial diameter. Severely increased left atrial volume. Moderately increased left atrial area. Mitral Valve Structurally normal mitral valve. Mild mitral regurgitation. No mitral stenosis. Aortic Valve Trileaflet aortic valve. No aortic stenosis. Mild aortic regurgitation. Tricuspid Valve Structurally normal tricuspid valve. Mild tricuspid regurgitation. No tricuspid stenosis. Pulmonic Valve Structurally normal pulmonic valve. Trace pulmonic regurgitation. No pulmonic stenosis. Pericardium No pericardial or pleural effusion. Aorta Normal size aortic root and proximal ascending aorta. CONCLUSIONS Normal LV size and preserved systolic function with mild concentric LVH. Severely enlarged atria. Mild mitral, moderate tricuspid and mild aortic insufficiency. No pericardial effusion. Moderate pulmonary hypertension Previewed by: Dr. Jocy Smith MD (Electronically Signed) Final Date: 16 August 2024 07:57
[2024-08-16 08:07] LABS: African American GFR (CKD) 66 (>60 ml/min/1.73 sqM); Anion Gap 8 mmol/L; Blood Urea Nitrogen 20 mg/dL (9-20); Calcium 8.9 mg/dL (8.4-10.2); Carbon Dioxide 27 mmol/L (22-30); Chloride 104 mmol/L (98-107); Glucose 82 mg/dL (74-99); Non-African American GFR(CKD) 57 (>60 ml/min/1.73 sqM); Potassium 3.6 mmol/L (3.5-5.1); Sodium 139 mmol/L (137-145)
[2024-08-16 10:07] VITALS: TEMP 98.8
--- NOTE | 2024-08-16 11:48 | P.CRDCN ---
History of Present Illness History of present illness: HISTORY OF PRESENT ILLNESS: This is a 73-year-old male with a past medical history significant for hypertension and obesity. Patient does not follow with a environmental marketing representative. We have been asked to see the patient in consultation for CVA, uncontrolled hypertension, and atrial fibrillation. Patient examined at the bedside. Patient presented to the hospital as he could not move his right arm. Patient denied having any chest pain or pressure. Denied having any shortness of breath. Patient was found to have acute/subacute CVA on MRI. Patient was also found to be in atrial fibrillation. The patient denies any known history of atrial fibrillation. He has been started on Eliquis. He remains in atrial fibrillation with controlled ventricular rate. DIAGNOSTICS: - EKG reveals A-fib with controlled ventricular - Chest xray questionable patchy opacities developing in the right lung base which could reflect atelectasis and/or pneumonia -MRI of the brain: Acute/subacute ischemia primarily in the left frontal parietal temporal watershed region with additional focus within the anterior left temporal lobe within the middle cranial fossa. - Laboratory data: WBC 6.7. Hemoglobin 15.1. Platelet count 166. Sodium 138. Potassium 3.9. BUN 15. Creatinine 1.15. Troponin negative x 1. - Current home cardiac medications include lisinopril 20 mg twice a day, aspirin 81 mg daily, and metoprolol tartrate 100 mg twice a day - Echocardiogram obtained this admission reveals ejection fraction 55 to 60%, moderate pulmonary hypertension, mild mitral regurgitation, mild aortic regurgitation, mild tricuspid regurgitation REVIEW OF SYSTEMS: At the time of my exam: CONSTITUTIONAL: Denies fever or chills. HEENT: Denies blurred vision, vision changes, or eye pain. Denies hemoptysis CARDIOVASCULAR: Denies chest pain. Denies orthopnea. Denies PND. Denies palpitations RESPIRATORY: Denies shortness of breath. GASTROINTESTINAL: Denies abdominal pain. Denies nausea or vomiting. HEMATOLOGIC: Denies bleeding disorders. GENITOURINARY: Denies any blood in urine. SKIN: Denies pruitis. Denies rash. PHYSICAL EXAM: VITAL SIGNS: Reviewed. GENERAL: Well-developed in no acute distress. HEENT: Head is normocephalic. Pupils are equal, round. Sclerae anicteric. Mucous membranes of the mouth are moist. Neck supple. No JVD or thyromegaly LUNGS: Respirations even and unlabored. Lungs essentially clear to auscultation bilaterally. HEART: Irregular rate and rhythm. S1 and S2 heard. ABDOMEN: Soft. Nondistended. Nontender. EXTREMITIES: Normal range of motion. No clubbing or cyanosis. Peripheral pulses intact. No lower extremity edema NEUROLOGIC: Awake and alert. Oriented x 3. ASSESSMENT: Acute/subacute CVA New onset atrial fibrillation with controlled ventricular rate Moderate pulm hypertension Hypertension uncontrolled on admission Obesity: BMI 36.4 PLAN: 2D echo obtained and reviewed TSH checked and within normal limits Patient has been started on Eliquis 5 mg twice a day Continue current cardiac medications Continue telemetry monitoring Patient instructed to purchase a blood pressure cuff on an outpatient basis and keep a log of his blood pressures Further recommendations pending patient course Nurse practitioner note has been reviewed by physician. Signing provider agrees with the documented findings, assessment, and plan of care documented by GARMENT INSPECTOR as a scribe. Past Medical History Past Medical History: Hypertension History of Any Multi-Drug Resistant Organisms: None Reported Past Anesthesia/Blood Transfusion Reactions: No Reported Reaction Past Alcohol Use History: Occasional Past Drug Use History: Marijuana Medications and Allergies Home Medications Medication Instructions Recorded Confirmed Type Aspirin EC [Ecotrin Low Dose] 81 mg PO DAILY 08/14/24 08/14/24 History Metoprolol Tartrate [Lopressor] 100 mg PO BID 08/14/24 08/14/24 History Unknown Bp Med 1 tab PO HS 08/14/24 08/14/24 History lisinopriL [Zestril] 20 mg PO BID 08/14/24 08/14/24 History Allergies Allergy/AdvReac Type Severity Reaction Status Date / Time No Known Allergies Allergy Verified 08/14/24 07:10 Physical Exam Vitals: Vital Signs Temp Pulse Resp BP Pulse Ox 08/16/24 04:00 97.9 F 70 16 138/86 95 08/16/24 00:00 69 17 159/91 96 08/15/24 20:00 98.2 F 74 19 157/89 99 08/15/24 15:15 98.3 F 68 17 168/94 98 08/15/24 13:13 66 17 08/15/24 11:02 98.2 F 66 17 163/86 98 08/15/24 09:19 98.1 F 71 17 176/74 99 08/15/24 07:38 71 17 08/15/24 07:37 97.6 F 71 17 203/113 98 Intake and Output 08/15/24 08/16/24 08/16/24 22:59 06:59 14:59 Other: Voiding Method Toilet Toilet # Voids 3 1 # Bowel Movements 1 Weight 111.9 kg Results 08/15/24 06:54 08/16/24 06:30 CBC 08/15/24 Range/Units 06:54 WBC 6.7 (3.8-10.6) k/uL RBC 4.88 (4.30-5.90) m/uL Hgb 15.1 (13.0-17.5) gm/dL Hct 46.3 (39.0-53.0) % Plt Count 166 (150-450) k/uL Comprehensive Metabolic Panel 08/15/24 Range/Units 06:54 Sodium 138 (137-145) mmol/L Potassium 3.9 (3.5-5.1) mmol/L Chloride 106 (98-107) mmol/L Carbon Dioxide 27 (22-30) mmol/L BUN 15 (9-20) mg/dL Creatinine 1.15 (0.66-1.25) mg/dL Glucose 88 (74-99) mg/dL Calcium 8.7 (8.4-10.2) mg/dL Current Medications Generic Name Dose Route Start Last Admin Trade Name Freq PRN Reason Stop Dose Admin Amlodipine Besylate 10 mg 08/15/24 14:15 08/15/24 15:16 Amlodipine 10 Mg Tab PO 10 mg DAILY GLORIA Administration Apixaban 5 mg 08/15/24 21:00 08/15/24 20:21 Apixaban 5 Mg Tab PO 5 mg BID GLORIA Administration Protocol Aspirin 81 mg 08/15/24 09:00 08/15/24 07:44 Aspirin 81 Mg PO 81 mg DAILY GLORIA Administration Atorvastatin Calcium 80 mg 08/14/24 21:00 08/15/24 20:39 Atorvastatin 80 Mg Tab PO 80 mg HS GLORIA Administration Lisinopril 20 mg 08/14/24 13:00 08/15/24 20:21 Lisinopril 20 Mg Tab PO 20 mg BID GLORIA Administration Metoprolol Tartrate 100 mg 08/14/24 13:00 08/15/24 20:21 Metoprolol Tartrate 50 Mg Tab PO 100 mg BID GLORIA Administration Pantoprazole Sodium 40 mg 08/16/24 07:30 08/16/24 05:48 Pantoprazole 40 Mg Tablet PO 40 mg [id number] GLORIA Administration Intake and Output 08/15/24 08/16/24 08/16/24 22:59 06:59 14:59 Other: Voiding Method Toilet Toilet # Voids 3 1 # Bowel Movements 1 Weight 111.9 kg 08/15/24 06:54 08/15/24 06:54
[2024-08-16 12:09] VITALS: BP 123/85; PULSE 82; RESP 18
--- NOTE | 2024-08-18 11:32 | P.DS ---
Providers Date of admission: 08/13/24 21:17 Expected date of discharge: 08/16/24 Attending physician: Bernardo Silver Consults: 08/13/24 21:17 Consult Physician Routine Consulting Provider: Jose Bruner Consult Reason/Comments: cva Do you want consulting provider notified?: Yes 08/15/24 13:59 Consult Physician Urgent Consulting Provider: Wilson Boyd Consult Reason/Comments: new afib/flutter?, CVA, uncontrolled HTN Do you want consulting provider notified?: Yes Primary care physician: Hattie Tran Hospital Course: Final diagnosis Right sided weakness with changes in speech, secondary to CVA within the left frontal/parietal/temporal watershed region with additional focus in the anterior left temporal lobe within the middle cranial fossa noted on MRI History of hypertension Patient reports of known arrhythmia, although not sure if it was atrial fibrillation, 2D echo ordered and pending. EKG reports atrial fibrillation/flutter, cardiology confirms atrial fibrillation History of hyperlipidemia although does not take any medications he is fearful of taking statins due to significant side effects Alcohol use a few times weekly THC use a few times weekly Obesity with a BMI 36.2 GI prophylaxis DVT prophylaxis Full code Discharge disposition Patient is being discharged in a stable condition with guarded prognosis to home. Patient will follow-up with Dr. Hattie Tran in the outpatient setting upon discharge. Patient is to continue with current medications and close outpatient follow-up with cardiology and neurology as scheduled. Patient was started on Eliquis and given a free month coupon and recommend follow-up with your insurance provider and Medicaid. Total time taken is greater than 35 minutes. Hospital course This is a 73-year-old male who was recently admitted with right-sided weakness garbled speech with concerns of CVA versus TIA. Patient underwent CT which was negative and evaluated by neurology underwent MRI showing an acute/subacute ischemia primarily within the left frontal/parietal/temporal watershed region with additional focus within the anterior left temporal lobe within the middle cranial fossa. Patient reports was told previously that he did have an irregular heart rate or arrhythmia although was never officially diagnosed. Cardiology evaluated the patient as patient does have atrial fibrillation and is being started on anticoagulation in the form of Eliquis. Patient only has Medicare with no prescription coverage and was provided a free coupon instructed to follow-up regarding possible Medicaid and/or help within the [employer] that provides services to those who cannot afford it. Patient does live on a fixed Social Security income and alone and would most likely not be able to afford this. Patient reports he has previously tried for Medicaid although apparently makes too much. Patient also reports that he does go to [place] yearly and his RV and stays down there for a majority of the year. Patient has been cleared by consultations and instructed to follow-up with neurology as well as cardiology and primary care provider on discharge. Please refer to other consultation notes for further HPI. Currently no reports of chest pain, shortness of breath, or palpitations. Patient is afebrile. No reports of nausea or vomiting and patient is tolerating diet. Patient will be discharged home today. High risk for readmissions due to noncompliance with medication secondary to the cost and affordability. Physical exam: Gen: This is a 73-year-old male who is awake, alert and oriented x 3, well-dev eloped, elderly appearing, obese HEENT: Head is atraumatic, normocephalic. Pupils equal, round. Sclerae is anicteric. NECK: Supple. No JVD. No lymphadenopathy. No thyromegaly. LUNGS: Clear to auscultation. No wheezes or rhonchi. No intercostal retractions. HEART: S1, S2 are muffled, irregular ABDOMEN: Soft. Obese. Bowel sounds are present. No masses. No tenderness. EXTREMITIES: No pedal edema. No calf tenderness. NEUROLOGICAL: Patient is awake, alert and oriented x3. Cranial nerves 2 through 12 are grossly intact. Please refer to medication reconciliation sheet for a list of medications. The impression and plan of care has been dictated by Madeleine Herrera, Nurse Practitioner as directed. Dr. Patsy MD I have performed a history and examination and MDM of this patient, discussed the same with the dictator, and agree with the dictator's assessment and plan as written ,documented as a scribe. Based on total visit time, I have performed more than 50% of the visit. Patient Condition at Discharge: Fair Plan - Discharge Summary Discharge Rx Participant: No New Discharge Prescriptions: New Atorvastatin [Lipitor] 80 mg PO HS #30 tab amLODIPine [Norvasc] 10 mg PO DAILY #30 tab Apixaban [Eliquis] 5 mg PO BID #60 tab Continue Metoprolol Tartrate [Lopressor] 100 mg PO BID Aspirin EC [Ecotrin Low Dose] 81 mg PO DAILY lisinopriL [Zestril] 20 mg PO BID Discontinued Unknown Bp Med 1 tab PO HS Discharge Medication List Aspirin EC [Ecotrin Low Dose] 81 mg PO DAILY 08/14/24 [History] Metoprolol Tartrate [Lopressor] 100 mg PO BID 08/14/24 [History] lisinopriL [Zestril] 20 mg PO BID 08/14/24 [History] Apixaban [Eliquis] 5 mg PO BID #60 tab 08/16/24 [Rx] Atorvastatin [Lipitor] 80 mg PO HS #30 tab 08/16/24 [Rx] amLODIPine [Norvasc] 10 mg PO DAILY #30 tab 08/16/24 [Rx] Follow up Appointment(s)/Referral(s): Rupesh Lonodn MD [STAFF PHYSICIAN] - 2 Weeks (The office will call you with a follow up appointment.) Kate Richmond MD [REFERRING] - 1 Week (call to make follow up appointment. ) Hattie Tran MD [Primary Care Provider] - 08/21/24 2:30 pm Patient Instructions/Handouts: Ischemic Stroke (GEN) Activity/Diet/Wound Care/Special Instructions: Follow up with PCP to set up outpatient speech therapy or patient can contact speech therapy department and they will assist with arranging therapy - [phone] Activity limited until follow-up Follow-up with primary care provider Follow-up with cardiology outpatient Follow-up with neurology outpatient Continue taking medications as prescribed Discharge Disposition: HOME SELF-CARE
== END 2024-08-16 15:00 | disposition home or self-care (01) | DRG 65 ==
LOC: EC 20:30 → 3SCARD 21:17
PROVIDERS: ADMIT Hospitalist; ATTEND Hospitalist
DX: I63.89 Other cerebral infarction (principal); G81.91 Hemiplegia, unspecified affecting right dominant side; I48.92 Unspecified atrial flutter; R47.01 Aphasia; I16.0 Hypertensive urgency; E66.9 Obesity, unspecified; E78.5 Hyperlipidemia, unspecified; I10 Essential (primary) hypertension; I27.20 Pulmonary hypertension, unspecified; I48.91 Unspecified atrial fibrillation; Z68.36 Body mass index [BMI] 36.0-36.9, adult; Z79.82 Long term (current) use of aspirin; Z79.899 Other long term (current) drug therapy; Z71.89 Other specified counseling; Z28.310 Unvaccinated for COVID-19; Z79.01 Long term (current) use of anticoagulants
CPT/HCPCS: 36415; 70450; 70496; 70498; 70551; 71046; 80048; 80053; 80061; 82550; 83036; 84443; 84484; 85025; 85610; 85730; 93005; 93306; 96360; 96361; 96372; 99285